=== PATIENT | female | born 1950 | race Caucasian/White ===

== ENCOUNTER → 2023-09-24 | Outpatient (CLI) | payer MEDICARE ==
[2023-09-24 08:55] LABS: Basophils # (A) 0.2 k/uL (0-0.2); Basophils % (A) 2 %; Eosinophils # (A) 0.3 k/uL (0-0.7); Eosinophils % (A) 2 %; HCT 46.3 % (34.0-46.0); HGB 14.4 gm/dL (11.4-16.0); Hypochromasia Slight; Lymphocytes # (A) 2.2 k/uL (1.0-4.8); Lymphocytes % (A) 17 %; MCH 28.9 pg (25.0-35.0); MCHC 31.1 g/dL (31.0-37.0); MCV 92.8 fL (80.0-100.0); Mean Platelet Volume 8.8; Monocytes # (A) 0.8 k/uL (0-1.0); Monocytes % (A) 6 %; Neutrophils # (A) 9.1 k/uL (1.3-7.7); Neutrophils % (A) 71 %; Platelet Count 246 k/uL (150-450); RDW 15.1 % (11.5-15.5); WBC 12.8 k/uL (3.8-10.6)
[2023-09-24 09:03] LABS: ALT 19 U/L (4-34); African American GFR (CKD) 86 (>60 ml/min/1.73 sqM); Anion Gap 11 mmol/L; Blood Urea Nitrogen 19 mg/dL (7-17); Calcium 9.7 mg/dL (8.4-10.2); Carbon Dioxide 22 mmol/L (22-30); Chloride 105 mmol/L (98-107); Glucose 97 mg/dL (74-99); Non-African American GFR(CKD) 75 (>60 ml/min/1.73 sqM); Sodium 138 mmol/L (137-145); Total Bilirubin 1.1 mg/dL (0.2-1.3); Total Protein 8.3 g/dL (6.3-8.2)
[2023-09-24 09:07] LABS: AST 35 U/L (14-36); Alkaline Phosphatase 95 U/L (38-126); Potassium 4.7 mmol/L (3.5-5.1)
[2023-09-24 09:19] LABS: T4, Free (Free Thyroxine) 1.04 ng/dL (0.78-2.19)
[2023-09-24 15:36] LABS: % Iron Saturation 9.37 (12.00-45.00); Iron 37 UG/DL (50-170); LDL Cholesterol,Calculated 119.2 mg/dL (0.0-131.0); Total Iron Binding Capacity 395 UG/DL (228-460)
--- NOTE | 2023-09-27 16:31 | BD ---
EXAMINATION TYPE: Axial Bone Density DATE OF EXAM: 09/24/2023 CLINICAL HISTORY: 73 years old Female. ICD-10 CODE: M816 LOCALIZED OSTEOPOROSIS Height: 63.2in Weight: 105lb FRAX RISK QUESTIONS: Secondary Osteoporosis: RISK FACTORS HISTORY OF: MEDICATIONS: EXAM MEASUREMENTS: Bone mineral densitometry was performed using the [employer]. Bone mineral density as measured about the Lumbar spine is: ----- L1-L4(G/cm2): 0.752 T Score Values are as follows: ----- L1: -3.2 ----- L2: -3.7 ----- L3: -3.7 ----- L4: -3.8 ----- L1-L4: -3.6 Z Score Values are as follows: ----- L1: -0.9 ----- L2: -1.4 ----- L3: -1.4 ----- L4: -1.5 ----- L1-L4: -1.3 First dexa at [facility] Bone mineral density about the R hip (g/cm2): 0.605 Bone mineral density about the L hip (g/cm2): 0.580 T Score values are as follows: -----R Neck: -2.8 -----L Neck: -3.0 -----R Total: -3.2 -----L Total: -3.4 Z Score values are as follows: -----R Neck: -0.6 -----L Neck: -0.8 -----R Total: -1.2 -----L Total: -1.4 First dexa at [facility] FRAX%s: The graph provided illustrates a 16.2% chance for a major osteoporotic fx and a 6% chance for the hips probability for fx in 10 years time. IMPRESSION: Osteopenia (T Score between -2.5 and -1). There is slightly increased risk of fracture and the patient may be considered for treatment. Re-Screen 2-5 years. NOTE: T-SCORE=SD OF THE YOUNG ADULT MEAN.
== END | disposition home or self-care (01) ==
LOC: RADBDWWP 07:46
PROVIDERS: ATTEND Family Medicine
DX: M81.6 Localized osteoporosis [Lequesne] (principal); N17.9 Acute kidney failure, unspecified; R73.9 Hyperglycemia, unspecified; N18.32 Chronic kidney disease, stage 3b; E78.9 Disorder of lipoprotein metabolism, unspecified; M81.0 Age-related osteoporosis without current pathological fracture
CPT/HCPCS: 77080; 80053; 80061; 83036; 83540; 83550; 84439; 84443; 85025

== ENCOUNTER 2023-12-09 15:28 | Observation (INO) | payer MEDICARE ==
[2023-12-09 16:12] LABS: Basophils % (A) 0 %; Eosinophils # (A) 0.1 k/uL (0-0.7); Eosinophils % (A) 1 %; HCT 42.8 % (34.0-46.0); HGB 13.6 gm/dL (11.4-16.0); Lymphocytes # (A) 2.2 k/uL (1.0-4.8); Lymphocytes % (A) 19 %; MCH 28.7 pg (25.0-35.0); MCHC 31.9 g/dL (31.0-37.0); MCV 89.9 fL (80.0-100.0); Mean Platelet Volume 7.5; Monocytes # (A) 0.7 k/uL (0-1.0); Monocytes % (A) 6 %; Neutrophils # (A) 8.5 k/uL (1.3-7.7); Neutrophils % (A) 72 %; Platelet Count 320 k/uL (150-450); RBC 4.76 m/uL (3.80-5.40); RDW 13.7 % (11.5-15.5); WBC 11.7 k/uL (3.8-10.6)
--- NOTE | 2023-12-09 16:27 | XR ---
EXAMINATION TYPE: XR chest 2V DATE OF EXAM: 12/09/2023 4:15 PM CLINICAL INDICATION: Female, 73 years old with history of dysrhythmia; [facility] COMPARISON: Chest radiographs from 10/29/2009 TECHNIQUE: XR chest 2V Frontal view of the chest. FINDINGS: Lungs/Pleura: There is flattening of the diaphragm with increased lucency of the lungs. No evidence o f pneumothorax, pleural effusion or focal consolidation. Pulmonary vascularity: Unremarkable. Heart/mediastinum: The aortic arch is enlarged. Cardiomediastinal silhouette is unremarkable. Musculoskeletal: No acute osseous pathology. Other findings: None Lines/Tubes: IMPRESSION: 1. No acute cardiopulmonary disease/process. 2. 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 COPD. [facility], , 12/09/2023 4:25 PM
[2023-12-09 16:35] LABS: ALT 18 U/L (4-34); AST 26 U/L (14-36); African American GFR (CKD) >90 (>60 ml/min/1.73 sqM); Albumin 4.5 g/dL (3.5-5.0); Alkaline Phosphatase 94 U/L (38-126); Anion Gap 14 mmol/L; Blood Urea Nitrogen 12 mg/dL (7-17); Calcium 10.1 mg/dL (8.4-10.2); Carbon Dioxide 20 mmol/L (22-30); Chloride 101 mmol/L (98-107); Glucose 119 mg/dL (74-99); Magnesium 1.8 mg/dL (1.6-2.3); Non-African American GFR(CKD) 88 (>60 ml/min/1.73 sqM); Potassium 3.9 mmol/L (3.5-5.1); Sodium 135 mmol/L (137-145); Total Protein 7.7 g/dL (6.3-8.2)
--- NOTE | 2023-12-09 16:36 | ED ---
Arrhythmia/Palpitations HPI - General Chief Complaint: Arrhythmia/Palpitations Stated Complaint: AFIB Time Seen by Provider: 12/09/23 16:33 Source: patient, RN notes reviewed, old records reviewed Mode of arrival: ambulatory Limitations: no limitations - History of Present Illness Initial Comments: This is a 73-year-old female who presents today for evaluation regards to severely elevated heart rate on an outpatient evaluation. Patient's heart rate is mildly improved here in the ER but still feels short of breath with mild chest pain. Patient was seen at primary care's office prior to arrival and sent to the ER for further evaluation and management MD Complaint: rapid heart beat, "heart racing", "skipped beats", palpitations, irregular heart beat -: unknown Arrhythmia History: atrial fibrillation Associated Symptoms: chest pain, shortness of breath Treatments Prior to Arrival: other - Related Data Home Medications Medication Instructions Recorded Confirmed Risedronate Sodium [Actonel] 35 mg PO SA 12/09/23 12/09/23 traMADol HCL 50 mg PO BID 12/09/23 12/09/23 Previous Rx's Medication Instructions Recorded Aspirin 81 mg PO DAILY tab 12/11/23 Atorvastatin [Lipitor] 40 mg PO HS #30 tab 12/11/23 Metoprolol Tartrate [Lopressor] 25 mg PO BID #60 tab 12/11/23 Allergies Allergy/AdvReac Type Severity Reaction Status Date / Time codeine AdvReac Heart Rate Verified 12/09/23 16:44 increases Review of Systems ROS Statement: Those systems with pertinent positive or pertinent negative responses have been documented in the HPI. ROS Other: All systems not noted in ROS Statement are negative. Past Medical History Additional Past Medical History / Comment(s): Back History of Any Multi-Drug Resistant Organisms: None Reported Past Surgical History: No Surgical Hx Reported Past Psychological History: No Psychological Hx Reported Smoking Status: Never smoker Past Alcohol Use History: None Reported Past Drug Use History: None Reported General Exam Limitations: no limitations General appearance: alert, anxious, in distress Head exam: Present: atraumatic, normocephalic, normal inspection Eye exam: Present: normal appearance, PERRL, EOMI. Absent: scleral icterus, conjunctival injection, periorbital swelling ENT exam: Present: normal exam, mucous membranes moist Neck exam: Present: normal inspection. Absent: tenderness, meningismus, lymphadenopathy Respiratory exam: Present: normal lung sounds bilaterally. Absent: respiratory distress, wheezes, rales, rhonchi, stridor Cardiovascular Exam: Present: tachycardia, irregular rhythm, normal heart sounds. Absent: systolic murmur, diastolic murmur, rubs, gallop, clicks GI/Abdominal exam: Present: soft, normal bowel sounds. Absent: distended, tenderness, guarding, rebound, rigid Extremities exam: Present: normal inspection, full ROM, normal capillary refill. Absent: tenderness, pedal edema, joint swelling, calf tenderness Back exam: Present: normal inspection Neurological exam: Present: alert, oriented X3, CN II-XII intact Psychiatric exam: Present: normal affect, normal mood Skin exam: Present: warm, dry, intact, normal color. Absent: rash Course Vital Signs 12/09/23 12/09/23 12/09/23 15:38 16:39 16:42 Temperature 98 F Pulse Rate 114 H 109 H Pulse Rate [ 106 H Pulse Oximetery ] Respiratory 20 18 Rate Blood Pressure 124/87 86/35 O2 Sat by Pulse 99 99 Oximetry 12/09/23 12/09/23 12/09/23 19:46 20:00 20:30 Temperature 97.7 F Pulse Rate 106 H 85 84 Pulse Rate [ Pulse Oximetery ] Respiratory 20 Rate Blood Pressure 144/113 170/108 164/103 O2 Sat by Pulse Oximetry 12/09/23 12/09/23 12/10/23 21:00 21:15 00:29 Temperature Pulse Rate 81 91 72 Pulse Rate [ Pulse Oximetery ] Respiratory 17 Rate Blood Pressure 165/99 163/99 122/96 O2 Sat by Pulse 98 Oximetry 12/10/23 12/10/23 12/10/23 04:18 06:07 07:52 Temperature Pulse Rate 72 68 99 Pulse Rate [ Pulse Oximetery ] Respiratory 17 17 18 Rate Blood Pressure 128/85 128/86 118/83 O2 Sat by Pulse 97 99 100 Oximetry 12/10/23 12/10/23 12/10/23 08:02 09:06 11:00 Temperature Pulse Rate 87 82 74 Pulse Rate [ Pulse Oximetery ] Respiratory 18 18 18 Rate Blood Pressure 148/120 140/90 167/106 O2 Sat by Pulse 97 99 Oximetry 12/10/23 12/10/23 12/10/23 13:30 14:43 16:40 Temperature 98.3 F Pulse Rate 74 65 60 Pulse Rate [ Pulse Oximetery ] Respiratory 18 18 18 Rate Blood Pressure 136/101 182/106 147/93 O2 Sat by Pulse 99 98 98 Oximetry 12/10/23 12/10/23 18:40 19:40 Temperature Pulse Rate 82 74 Pulse Rate [ Pulse Oximetery ] Respiratory 18 21 Rate Blood Pressure 137/107 140/94 O2 Sat by Pulse 99 97 Oximetry - Reevaluation(s) Reevaluation #1: 12/09/23 18:39 Medical records reviewed Reevaluation #2: 12/09/23 18:39 Patient remains asymptomatic here in this emergency department Reevaluation #3: Patient informed of results and questions answered Reevaluation #4: Was pt. sent in by a medical professional or institution (LYN Rausch, FUNERAL DIRECTOR/EMBALMER/OWNER, urgent care, hospital, or senior care...) When possible be specific @ -no Did you speak to anyone other than the patient for history (EMS, parent, family, police, friend...)? What history was obtained from this source @ -no Did you review nursing and triage notes (agree or disagree)? Why? @ -agree Are old charts reviewed (outside hosp., previous admission, EMS record, old EKG, old radiological studies, urgent care reports/EKG's, senior care records)? Report findings @ -yes Differential Diagnosis (chest pain, altered mental status, abdominal pain women, abdominal pain men, vaginal bleeding, weakness, fever, dyspnea, syncope, headache, dizziness, GI bleed, back pain, seizure, CVA, palpatations, mental health, musculoskeletal)? @ -prior EKG interpreted by me (3pts min.). @ -yes X-rays interpreted by me (1pt min.). @ -no CT interpreted by me (1pt min.). @ -no U/S interpreted by me (1pt. min.). @ -no What testing was considered but not performed or refused? (CT, X-rays, U/S, labs)? Why? @ -none What meds were considered but not given or refused? Why? @ -none Did you discuss the management of the patient with other professionals (professionals i.e. LYN Rausch, FUNERAL DIRECTOR/EMBALMER/OWNER, lab, RT, psych nurse, hospital social worker, research & insights executive, teacher, multisensor intelligence officer, pillowcase maker)? Give summary @ -no Was smoking cessation discussed for >3mins.? @ -no Was critical care preformed (if so, how long)? @ -yes31 Were there social determinants of health that impacted care today? How? (Homelessness, low income, unemployed, alcoholism, drug addiction, transportatio n, low edu. Level, literacy, decrease access to med. care, halfway, rehab)? @ -none Was there de-escalation of care discussed even if they declined (Discuss DNR or withdrawal of care, Hospice)? DNR status @ -no What co-morbidities impacted this encounter? (DM, HTN, Smoking, COPD, CAD, Cancer, CVA, ARF, Chemo, Hep., AIDS, mental health diagnosis, sleep apnea, morbid obesity)? @ -none Was patient admitted / discharged? Hospital course, mention meds given and route, prescriptions, significant lab abnormalities, going to OR and other pertinent info. @ - 85 female for weakness, patient is a poor historian secondary to underlying dementia, patient will be discharged home with no acute findings Admitted Undiagnosed new problem with uncertain prognosis? @ -no Drug Therapy requiring intensive monitoring for toxicity (Heparin, Nitro, Insulin, Cardizem)? @ -no Were any procedures done? @ -no Diagnosis/symptom? @ -Atrial fibrillation with RVR Acute, or Chronic, or Acute on Chronic? @ -Acute Uncomplicated (without systemic symptoms) or Complicated (systemic symptoms)? @ -Complicated Side effects of treatment? @ -no Exacerbation, Progression, or Severe Exacerbation? @ -exacerbation Poses a threat to life or bodily function? How? (Chest pain, USA, OR, pneumonia, PE, COPD, DKA, ARF, appy, cholecystitis, CVA, Diverticulitis, Homicidal, Suicidal, threat to staff... and all critical care pts) @ -yes acute arrhythmia and palpitations Reevaluation #5: Differential Palpitations Ventricular arrhythmias, atrial arrhythmias, myocardial infarction, anemia, thyrotoxicosis, electrolyte imbalance, hypokalemia, pulmonary embolism, pulmonary disease, drugs, alcohol, anxiety, stress.... This is not meant to be an all-inclusive list. - Consultations Consultation #1: Spoke with admitting who agrees to admit this patient EKG Findings - EKG Comments: EKG Findings:: EKG is sinus tachycardia 122 WI 142 QRS 77 QTc 385 - EKG Results: EKG: interpreted by [facility] Medical Decision Making - Lab Data Result diagrams: 12/10/23 07:46 12/10/23 07:46 Lab Results 12/09/23 12/09/23 12/09/23 Range/Units 15:20 15:20 15:20 WBC 11.7 H (3.8-10.6) k/uL RBC 4.76 (3.80-5.40) m/uL Hgb 13.6 (11.4-16.0) gm/dL Hct 42.8 (34.0-46.0) % MCV 89.9 (80.0-100.0) fL MCH 28.7 (25.0-35.0) pg MCHC 31.9 (31.0-37.0) g/dL RDW 13.7 (11.5-15.5) % Plt Count 320 (150-450) k/uL MPV 7.5 Neutrophils % 72 % Lymphocytes % 19 % Monocytes % 6 % Eosinophils % 1 % Basophils % 0 % Neutrophils # 8.5 H (1.3-7.7) k/uL Lymphocytes # 2.2 (1.0-4.8) k/uL Monocytes # 0.7 (0-1.0) k/uL Eosinophils # 0.1 (0-0.7) k/uL Basophils # 0.0 (0-0.2) k/uL PT 11.0 (10.0-12.5) sec INR 1.0 (<1.2) APTT 25.6 (22.0-30.0) sec Sodium 135 L (137-145) mmol/L Potassium 3.9 (3.5-5.1) mmol/L Chloride 101 (98-107) mmol/L Carbon Dioxide 20 L (22-30) mmol/L Anion Gap 14 mmol/L BUN 12 (7-17) mg/dL Creatinine 0.69 (0.52-1.04) mg/dL Est GFR (CKD-EPI)AfAm >90 (>60 ml/min/1.73 sqM) Est GFR (CKD-EPI)NonAf 88 (>60 ml/min/1.73 sqM) Glucose 119 H (74-99) mg/dL Calcium 10.1 (8.4-10.2) mg/dL Magnesium 1.8 (1.6-2.3) mg/dL Total Bilirubin 1.0 (0.2-1.3) mg/dL AST 26 (14-36) U/L ALT 18 (4-34) U/L Alkaline Phosphatase 94 (38-126) U/L Troponin I (0.000-0.034) ng/mL NT-Pro-B Natriuret Pep pg/mL Total Protein 7.7 (6.3-8.2) g/dL Albumin 4.5 (3.5-5.0) g/dL 12/09/23 12/09/23 Range/Units 15:20 15:20 WBC (3.8-10.6) k/uL RBC (3.80-5.40) m/uL Hgb (11.4-16.0) gm/dL Hct (34.0-46.0) % MCV (80.0-100.0) fL MCH (25.0-35.0) pg MCHC (31.0-37.0) g/dL RDW (11.5-15.5) % Plt Count (150-450) k/uL MPV Neutrophils % % Lymphocytes % % Monocytes % % Eosinophils % % Basophils % % Neutrophils # (1.3-7.7) k/uL Lymphocytes # (1.0-4.8) k/uL Monocytes # (0-1.0) k/uL Eosinophils # (0-0.7) k/uL Basophils # (0-0.2) k/uL PT (10.0-12.5) sec INR (<1.2) APTT (22.0-30.0) sec Sodium (137-145) mmol/L Potassium (3.5-5.1) mmol/L Chloride (98-107) mmol/L Carbon Dioxide (22-30) mmol/L Anion Gap mmol/L BUN (7-17) mg/dL Creatinine (0.52-1.04) mg/dL Est GFR (CKD-EPI)AfAm (>60 ml/min/1.73 sqM) Est GFR (CKD-EPI)NonAf (>60 ml/min/1.73 sqM) Glucose (74-99) mg/dL Calcium (8.4-10.2) mg/dL Magnesium (1.6-2.3) mg/dL Total Bilirubin (0.2-1.3) mg/dL AST (14-36) U/L ALT (4-34) U/L Alkaline Phosphatase (38-126) U/L Troponin I <0.012 (0.000-0.034) ng/mL NT-Pro-B Natriuret Pep 896 pg/mL Total Protein (6.3-8.2) g/dL Albumin (3.5-5.0) g/dL Critical Care Time Critical Care Time: Yes Total Critical Care Time: 31 Disposition Clinical Impression: Atrial fibrillation with rapid ventricular response, Tachycardia, Palpitations, Atrial fibrillation Disposition: ADMITTED IP TO THIS [facility] Condition: Serious Is patient prescribed a controlled substance at d/c from ED?: No Time of Disposition: 18:35
[2023-12-09 16:46] LABS: Partial Thromboplastin Time 25.6 sec (22.0-30.0)
[2023-12-09] MEDS ORDERED: MORPHINE SULFATE 4 MG/ML SYRINGE IV PRN (18:47)
[2023-12-09] MEDS ORDERED: NALOXONE 0.4 MG/ML 1 ML VIAL IV PRN (18:47)
[2023-12-09] MEDS ORDERED: ONDANSETRON 4 MG/2 ML VIAL IVP PRN (18:47)
[2023-12-09] MEDS: HEPARIN SODIUM 1,000 UN/ML (10ML VL) IV ONE (19:09)
[2023-12-09] MEDS: HEPARIN SOD,PORK IN 0.45% NACL 25,000 UNIT in 0.45% NACL 1 250ML.BAG IV SCH (19:10)
[2023-12-09] MEDS: DILTIAZEM DRIP BOLUS FROM BAG 1 MG SOLN IV ONE (19:19)
[2023-12-09] MEDS: DILTIAZEM 125 MG in SODIUM CHLORIDE 0.9% 100 ML IV SCH (19:20)
[2023-12-09] MEDS: SODIUM CHLORIDE 0.9% 1,000 ML IV SCH (20:28)
[2023-12-10] MEDS: HEPARIN SODIUM 1,000 UN/ML (10ML VL) IV PRN (02:53)
--- NOTE | 2023-12-10 05:31 | P.HPIM ---
History of Present Illness H&P Date: 12/09/23 HISTORY OF PRESENT ILLNESS: 73-year-old with active medical history of chronic pain syndrome, chronic back pain scheduled in December. With Dr. Gilmore for kyphoplasty of the L2 with biopsy within the office today for preop clearance found to have irregular heart rate with pulse running 160 bpm with EKG showed A-fib with very rapid ventricular response. Patient is not having any chest pain but having slight lightheadedness and palpitation according to her had this on and off in the past occasionally developed worsening shortness of breath. Patient is new to our office and no indication of any hyperthyroidism or any electrolyte imbalance. She is a former smoker who is not smoking actively. Rest of her vitals including blood pressure is 110/64 normal temperature with no sign of any active acute infection. Decided to send patient to the emergency room to be admitted for A-fib with RVR started on anticoagulation along with Cardizem drip and to be seen cardiology. REVIEW OF SYSTEMS: CONSTITUTIONAL: Well-developed no acute respiratory distress. EYES: No icterus sclerae, no conjunctivitis. EARS, NOSE, MOUTH, THROAT, and FACE: No sore throat, lymphadenopathy, carotid bruits or deformity. RESPIRATORY: Mild shortness of breath no cough or wheezes. CARDIOVASCULAR: Positive slight discomfort with mild palpitation no PND orthopnea no angina. GASTROINTESTINAL: No Abd pain, Nausea or vomiting, no Diarrhea or constipation, No GI Bleed, no distention or masses. GENITOURINARY: Negative for Hematuria or UTI, no kidney stones. INTEGUMENT/BREAST: Negative for any muscular injury with mild osteoarthritis.. HEMATOLOGIC/LYMPHATIC: Negative for bleed or purpura. MUSCULOSKELTAL: Significant lower back pain. NEURLOGICAL: No LOC, Sz or syncope, blurred vision dizziness or abnormality.. BEHAVIORAL/PSYCH: Negative. ENDOCRINE: Negative. PHYSICAL EXAMINATION: General Appearance: Alert, cooperative, no distress, appears stated age. Neck HEENT: Supple, no lymphadenopathy, no thyroid enlargement, no carotid bruits. Lungs: Clear to auscultation without crackles or wheezes no rhonchi, no deformity. Chest Wall: Chest wall normal expansion with deep inspiration no tenderness and no deformity was found on exam, no costochondral pain or discomfort. Heart: Irregular rate and rhythm, S1, S2 positive S3 positive tachycardia with pulse of 160 bpm. Back: Symmetric, no curvature, ROM normal, no CVA tenderness. Abdomen: Soft, non-tender, bowel sounds active all four quadrants, no masses, no organomegaly. Extremities: Extremities normal, atraumatic, no cyanosis or edema. Pulses: 2+ and symmetric. Skin: Skin color, texture, tugor normal, no rashes or lesions. Neurologic: Alert oriented x3 cranial nerves II through XII intact, no motor deficit, no abnormal balance or gait. ASSESSMENT AND PLAN: _A-fib with RVR: New onset, patient be admitted to the hospital started on heparin drip and Cardizem titrate dose to keep pulse below 100 beats per minutes. Will consult cardiology also followed Including echocardiogram, Holter monitor, full panel blood work to be done _Slight dyspnea and shortness of breath: Most likely associated with A-fib troponin will be done to exclude possibility of acute myocardial infarction. _Severe lower back pain with lumbar spine compression she will be going for kyphoplasty and biopsy in July 14, 2023 will depend surgery does not have to be canceled if patient cardiac testing are negative. _History of uterine cancer post hysterectomy and left-sided oophorectomy has been in remission currently. _Osteoporosis: Has been on Actonel 35 mg weekly along with calcium and vitamin D. _Hyperglycemia: With no official diagnosis of type 2 diabetes, Accu-Chek to be done watch for any increase in blood sugars are medication or management. _Chronic pain syndrome: The patient is using tramadol 50 mg every 6 hours as needed will continue medication along with muscle relaxer. _Insomnia: Has been on trazodone will resume medication. _DVT prophylaxis: Patient be on heparin drip. _GI prophylaxis: Patient be on Pepcid 20 mg daily. CODE STATUS: Full code. Admit patient to the hospital to the inpatient service for 1-2 night stay. Past Medical History Additional Past Medical History / Comment(s): Back History of Any Multi-Drug Resistant Organisms: None Reported Past Surgical History: No Surgical Hx Reported Past Psychological History: No Psychological Hx Reported Smoking Status: Never smoker Past Alcohol Use History: None Reported Past Drug Use History: None Reported Medications and Allergies Home Medications Medication Instructions Recorded Confirmed Type Risedronate Sodium [Actonel] 35 mg PO SA 12/09/23 12/09/23 History traMADol HCL 50 mg PO BID 12/09/23 12/09/23 History Allergies Allergy/AdvReac Type Severity Reaction Status Date / Time codeine AdvReac Heart Rate Verified 12/09/23 16:44 increases Physical Exam Vitals: Vital Signs Temp Pulse Pulse Resp BP Pulse Ox 12/09/23 21:15 91 163/99 12/09/23 21:00 81 165/99 12/09/23 20:30 84 164/103 12/09/23 20:00 85 170/108 12/09/23 19:46 97.7 F 106 H 20 144/113 12/09/23 16:42 106 H 12/09/23 16:39 109 H 18 86/35 99 12/09/23 15:38 98 F 114 H 20 124/87 99 Intake and Output 12/09/23 12/09/23 12/10/23 14:59 22:59 06:59 Other: Weight 42.638 kg Results CBC & Chem 7: 12/09/23 15:20 12/09/23 15:20 Labs: Abnormal Lab Results - Last 24 Hours (Table) 12/09/23 12/09/23 Range/Units 15:20 15:20 WBC 11.7 H (3.8-10.6) k/uL Neutrophils # 8.5 H (1.3-7.7) k/uL Sodium 135 L (137-145) mmol/L Carbon Dioxide 20 L (22-30) mmol/L Glucose 119 H (74-99) mg/dL
[2023-12-10 08:02] LABS: Basophils % (A) 0 %; Eosinophils # (A) 0.1 k/uL (0-0.7); Eosinophils % (A) 2 %; HCT 40.4 % (34.0-46.0); HGB 12.6 gm/dL (11.4-16.0); Hypochromasia Slight; Lymphocytes # (A) 1.7 k/uL (1.0-4.8); Lymphocytes % (A) 22 %; MCH 28.6 pg (25.0-35.0); MCHC 31.1 g/dL (31.0-37.0); MCV 91.9 fL (80.0-100.0); Mean Platelet Volume 7.7; Monocytes # (A) 0.5 k/uL (0-1.0); Monocytes % (A) 6 %; Neutrophils # (A) 5.3 k/uL (1.3-7.7); Neutrophils % (A) 68 %; Platelet Count 249 k/uL (150-450); RBC 4.39 m/uL (3.80-5.40); RDW 13.8 % (11.5-15.5); WBC 7.8 k/uL (3.8-10.6)
[2023-12-10 08:46] LABS: African American GFR (CKD) >90 (>60 ml/min/1.73 sqM); Albumin 3.7 g/dL (3.5-5.0); Anion Gap 7 mmol/L; Blood Urea Nitrogen 10 mg/dL (7-17); Carbon Dioxide 22 mmol/L (22-30); Chloride 106 mmol/L (98-107); Glucose 83 mg/dL (74-99); Non-African American GFR(CKD) >90 (>60 ml/min/1.73 sqM); Sodium 135 mmol/L (137-145); Total Bilirubin 1.1 mg/dL (0.2-1.3); Total Protein 6.7 g/dL (6.3-8.2)
[2023-12-10] MEDS: FAMOTIDINE 20 MG TAB PO SCH (08:56)
[2023-12-10] MEDS: traMADol 50 MG TAB PO SCH (08:56)
[2023-12-10 09:14] LABS: ALT 15 U/L (4-34); AST 27 U/L (14-36); Magnesium 1.8 mg/dL (1.6-2.3); Phosphorus 3.1 mg/dL (2.5-4.5); Potassium 4.2 mmol/L (3.5-5.1)
[2023-12-10 09:15] LABS: Alkaline Phosphatase 78 U/L (38-126)
[2023-12-10] MEDS: ASPIRIN 81 MG PO SCH (12:57)
[2023-12-10] MEDS: METOPROLOL TARTRATE 25 MG TAB PO SCH (12:57)
--- NOTE | 2023-12-10 13:28 | P.CRDCN ---
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 She has a past medical history of a TIA and October 2022, chronic back pain. We have been asked to see the patient for A-fib with RVR. Patient was seen at her PCP office in preparation for preop clearance for kyphoplasty of the L2 and was found to have an irregular heart rate with pulse in the 160 range. There was concern for A-fib with RVR and patient was sent to the emergency center for further evaluation. Patient complains of back pain but no chest pain, shortness of breath, no palpitations. Patient denies cough, no dizziness, no fever. She was a smoker of a half a pack per day and quit 2 months ago. She drinks 1 cup of coffee per day. No alcohol use. Blood pressure 148/120, heart rate 101. Patient has been started on Cardizem drip and heparin drip. EKG: Sinus rhythm with PVCs and PACs. EKG has been obtained from PCP office and reviewed found to have sinus rhythm with PVCs and PACs, no evidence of atrial fibrillation Chest x-ray: No acute process. Large aortic arch correlate for ascending thoracic aortic aneurysm. COPD. Laboratory studies: CBC unremarkable initial WBC 11.7. Sodium 135, creatinine 0.62. Troponin negative x 3 draws. TSH 1.22. proBNP 896. Home cardiac medications: None Review Of Systems: At the time of my exam: CONSTITUTIONAL: Denies fever or chills. HEENT: Denies blurred vision, vision changes, or eye pain. Denies hemoptysis CARDIOVASCULAR: Denies chest pain. Denies orthopnea. Denies PND. Denies palpitations RESPIRATORY: Denies shortness of breath. GASTROINTESTINAL: Denies abdominal pain. Denies nausea or vomiting. HEMATOLOGIC: Denies bleeding disorders. GENITOURINARY: Denies any blood in urine. SKIN: Denies puritis. Denies rash. Physical examination: Gen: This is a 73-year-old female in no acute distress VS: reviewed HEENT: Head is atraumatic, normocephalic. Pupils equal, round. Sclerae is anicteric. NECK: Supple. No JVD. Bilateral carotid bruit LUNGS: Clear to auscultation. No wheezes or rhonchi. No intercostal retractions. HEART: Regular rate and rhythm. 3/6 systolic murmur. ABDOMEN: Soft No tenderness. EXTREMITIES: No pedal edema. No calf tenderness. NEUROLOGICAL: Patient is awake, alert and oriented x3. Assessment: Atrial fibrillation currently ruled out Chronic back pain Bilateral carotid bruit History of TIA History of tobacco use, quit 2 months ago Plan: Discontinue heparin drip Discontinue Cardizem drip Start patient on metoprolol tartrate 25 mg twice daily, aspirin 81 mg daily, Lipitor 40 mg daily Obtain lipid profile Continue telemetry monitoring Obtain carotid duplex Obtain 2-D echocardiogram and Doppler study to assess cardiac structure and function Further recommendations to follow based upon clinical course Thank you kindly for this consultation. Nurse practitioner note has been reviewed, I agree with documented findings and plan of care. Patient was seen and examined. Past Medical History Additional Past Medical History / Comment(s): Back History of Any Multi-Drug Resistant Organisms: None Reported Past Surgical History: No Surgical Hx Reported Past Psychological History: No Psychological Hx Reported Smoking Status: Never smoker Past Alcohol Use History: None Reported Past Drug Use History: None Reported Medications and Allergies Home Medications Medication Instructions Recorded Confirmed Type Risedronate Sodium [Actonel] 35 mg PO SA 12/09/23 12/09/23 History traMADol HCL 50 mg PO BID 12/09/23 12/09/23 History Allergies Allergy/AdvReac Type Severity Reaction Status Date / Time codeine AdvReac Heart Rate Verified 12/09/23 16:44 increases Physical Exam Vitals: Vital Signs Temp Pulse Pulse Resp BP Pulse Ox 12/10/23 09:06 82 18 140/90 12/10/23 08:02 87 18 148/120 97 12/10/23 07:52 99 18 118/83 100 12/10/23 06:07 68 17 128/86 99 12/10/23 04:18 72 17 128/85 97 12/10/23 00:29 72 17 122/96 98 12/09/23 21:15 91 163/99 12/09/23 21:00 81 165/99 12/09/23 20:30 84 164/103 12/09/23 20:00 85 170/108 12/09/23 19:46 97.7 F 106 H 20 144/113 12/09/23 16:42 106 H 12/09/23 16:39 109 H 18 86/35 99 12/09/23 15:38 98 F 114 H 20 124/87 99 Intake and Output 12/09/23 12/10/23 12/10/23 22:59 06:59 14:59 Intake Total 39.06 Balance 39.06 Intake: Intake, IV Titration 39.06 Amount Heparin Sod,Pork in 0.45% 39.06 NaCl 25,000 unit In 0.45 % NaCl 1 250ml.bag @ 12 UNITS/KG/HR 5.117 mls/hr IV .Q[facility]H [facility] Rx#: [id number] Other: Weight 42.638 kg Results 12/10/23 07:46 12/10/23 07:46 Cardiac Enzymes 12/09/23 12/09/23 12/09/23 Range/Units 15:20 15:20 21:13 AST 26 (14-36) U/L Troponin I <0.012 0.023 (0.000-0.034) ng/mL 12/10/23 12/10/23 Range/Units 00:54 07:46 AST 27 (14-36) U/L Troponin I 0.032 (0.000-0.034) ng/mL Coagulation 12/09/23 12/10/23 12/10/23 Range/Units 15:20 00:54 07:46 PT 11.0 (10.0-12.5) sec APTT 25.6 30.9 H 37.0 H (22.0-30.0) sec 12/10/23 Range/Units 09:35 PT (10.0-12.5) sec APTT 35.5 H (22.0-30.0) sec CBC 12/09/23 12/10/23 Range/Units 15:20 07:46 WBC 11.7 H 7.8 (3.8-10.6) k/uL RBC 4.76 4.39 (3.80-5.40) m/uL Hgb 13.6 12.6 (11.4-16.0) gm/dL Hct 42.8 40.4 (34.0-46.0) % Plt Count 320 249 (150-450) k/uL Comprehensive Metabolic Panel 12/09/23 12/10/23 Range/Units 15:20 07:46 Sodium 135 L 135 L (137-145) mmol/L Potassium 3.9 4.2 (3.5-5.1) mmol/L Chloride 101 106 (98-107) mmol/L Carbon Dioxide 20 L 22 (22-30) mmol/L BUN 12 10 (7-17) mg/dL Creatinine 0.69 0.62 (0.52-1.04) mg/dL Glucose 119 H 83 (74-99) mg/dL Calcium 10.1 9.0 (8.4-10.2) mg/dL AST 26 27 (14-36) U/L ALT 18 15 (4-34) U/L Alkaline Phosphatase 94 78 (38-126) U/L Total Protein 7.7 6.7 (6.3-8.2) g/dL Albumin 4.5 3.7 (3.5-5.0) g/dL Current Medications Generic Name Dose Route Start Last Admin Trade Name Freq PRN Reason Stop Dose Admin Aspirin 81 mg 12/10/23 12:45 12/10/23 12:57 Aspirin 81 Mg PO Not Given DAILY CONCHITA Atorvastatin Calcium 40 mg 12/10/23 21:00 Atorvastatin 40 Mg Tab PO HS CONCHITA Famotidine 20 mg 12/10/23 09:00 12/10/23 08:56 Famotidine 20 Mg Tab PO 20 mg DAILY CONCHITA Administration Sodium Chloride 1,000 mls @ 75 mls/hr 12/09/23 19:00 12/10/23 08:56 Saline 0.9% IV 75 mls/hr .[id number] CONCHITA Administration Metoprolol Tartrate 25 mg 12/10/23 12:45 12/10/23 12:57 Metoprolol Tartrate 25 Mg Tab PO 25 mg BID CONCHITA Administration Morphine Sulfate 4 mg 12/09/23 18:47 Morphine Sulfate 4 Mg/Ml Syringe IV Q4HR PRN Severe Pain (Scale 7 to 10) Naloxone HCl 0.2 mg 12/09/23 18:47 Naloxone 0.4 Mg/Ml 1 Ml Vial IV Q2M PRN Opioid Reversal Ondansetron HCl 4 mg 12/09/23 18:47 Ondansetron 4 Mg/2 Ml Vial IVP Q8HR PRN Nausea And Vomiting Tramadol HCl 50 mg 12/10/23 09:00 09/26/24 08:56 Tramadol 50 Mg Tab PO 50 mg BID CONCHITA Administration Intake and Output 12/09/23 12/10/23 12/10/23 22:59 06:59 14:59 Intake Total 39.06 Balance 39.06 Intake: Intake, IV Titration 39.06 Amount Heparin Sod,Pork in 0.45% 39.06 NaCl 25,000 unit In 0.45 % NaCl 1 250ml.bag @ 12 UNITS/KG/HR 5.117 mls/hr IV .Q24H [facility] Rx#: [id number] Other: Weight 42.638 kg 12/10/23 07:46 12/10/23 07:46
--- NOTE | 2023-12-10 15:44 | US ---
EXAMINATION TYPE: US carotid duplex BILAT DATE OF EXAM: 12/10/2023 COMPARISON: NONE CLINICAL INDICATION: Female, 73 years old with history of Bruit bilat; h/o TIA in 2022 TECHNIQUE: Carotid duplex ultrasound examination. Indirect Doppler criteria was utilized. FINDINGS: EXAM MEASUREMENTS: RIGHT: Peak Systolic Velocity (PSV) cm/sec ----- Right CCA: 50.5 ----- Right ICA: 57.5 ----- Right ECA: 165.2 ICA/CCA ratio: 1.1 RIGHT: End Diastole cm/sec ----- Right CCA: 19.1 ----- Right ICA: 21.7 ----- Right ECA: 24. 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 1. Normal (no stenosis)=ICA PSV < 125 cm/s: ratio < 2.0: ICA EDV<40 cm/s. 2. Less than 50% stenosis=ICA PSV < 125 cm/s: ratio < 2.0: ICA EDV<40 cm/s. 3. 50 to 69% stenosis=ICA PSV of 125 to 230 cm/s: ration 2.0 ? 4.0: ICA EDV 40-100 cm/s. 4. Greater than 70% stenosis to near occlusion= ICA PSV > 230 cm/s: ratio > 4.0: ICA EDV > 100 cm/s. 5. Near occlusion= ICA PSV velocities may be low or undetectable: variable ratio and ICA EDV. 6. Total occlusion=unable to detect flow. [facility], , 12/10/2023 3:42 PM
[2023-12-10] MEDS: ATORVASTATIN 40 MG TAB PO SCH (20:36)
--- NOTE | 2023-12-11 07:29 | P.PN ---
Subjective Progress Note Date: 12/10/23 HISTORY OF PRESENT ILLNESS: 73-year-old with active medical history of chronic pain syndrome, chronic back pain scheduled in December. With Dr. Gilmore for kyphoplasty of the L2 with biopsy within the office today for preop clearance found to have irregular heart rate with pulse running 160 bpm with EKG showed A-fib with very rapid ventricular response. Patient is not having any chest pain but having slight lightheadedness and palpitation according to her had this on and off in the past occasionally developed worsening shortness of breath. Patient is new to our office and no indication of any hyperthyroidism or any electrolyte imbalance. She is a former smoker who is not smoking actively. Rest of her vitals including blood pressure is 110/64 normal temperature with no sign of any active acute infection. Decided to send patient to the emergency room to be admitted f or A-fib with RVR started on anticoagulation along with Cardizem drip and to be seen cardiology. 12/10/2023: The patient is doing much better pulse rate on Cardizem drip is down in the 90-1 10 back in sinus rhythm with no A-fib will be seen cardiology today Cardizem will be discontinued and start metoprolol to tartrate 25 mg twice a day will titrate dose higher if needed continue to watch patient on telemetry apparently cardiology reviewed the rhythm strip and the EKG originally and they do not believe this is A-fib but mostly PVCs and PACs with rapid pulse and recommending to keep patient on higher dose of beta-marva metoprolol will be titrated if needed no anticoagulation recommended at this point. On encounter of? Of carotid bruits patient is having carotid ultrasound and still waiting for her echocardiogram. Fortunately all testing including troponin and electrolytes along with thyroid has been negative and normal. Prepare hopefully for discharge in the next 24 hours after complete testing in the next week to watch patient pulse rate remained below 100 on beta-marva. REVIEW OF SYSTEMS: CONSTITUTIONAL: Well-developed no acute respiratory distress. EYES: No icterus sclerae, no conjunctivitis. EARS, NOSE, MOUTH, THROAT, and FACE: No sore throat, lymphadenopathy, carotid bruits or deformity. RESPIRATORY: Mild shortness of breath no cough or wheezes. CARDIOVASCULAR: Positive slight discomfort with mild palpitation no PND o rthopnea no angina. GASTROINTESTINAL: No Abd pain, Nausea or vomiting, no Diarrhea or constipation, No GI Bleed, no distention or masses. GENITOURINARY: Negative for Hematuria or UTI, no kidney stones. INTEGUMENT/BREAST: Negative for any muscular injury with mild osteoarthritis.. HEMATOLOGIC/LYMPHATIC: Negative for bleed or purpura. MUSCULOSKELTAL: Significant lower back pain. NEURLOGICAL: No LOC, Sz or syncope, blurred vision dizziness or abnormality.. BEHAVIORAL/PSYCH: Negative. ENDOCRINE: Negative. PHYSICAL EXAMINATION: General Appearance: Alert, cooperative, no distress, appears stated age. Neck HEENT: Supple, no lymphadenopathy, no thyroid enlargement, no carotid bruits. Lungs: Clear to auscultation without crackles or wheezes no rhonchi, no deformity. Chest Wall: Chest wall normal expansion with deep inspiration no tenderness and no deformity was found on exam, no costochondral pain or discomfort. Heart: Irregular rate and rhythm, S1, S2 positive S3 positive tachycardia with pulse of 160 bpm. Back: Symmetric, no curvature, ROM normal, no CVA tenderness. Abdomen: Soft, non-tender, bowel sounds active all four quadrants, no masses, no organomegaly. Extremities: Extremities normal, atraumatic, no cyanosis or edema. Pulses: 2+ and symmetric. Skin: Skin color, texture, tugor normal, no rashes or lesions. Neurologic: Alert oriented x3 cranial nerves II through XII intact, no motor deficit, no abnormal balance or gait. ASSESSMENT AND PLAN: _A-fib with RVR was ruled out: The patient had very rapid PVCs and PACs at 160 bpm brought down by Cardizem and will be continue on metoprolol without Cardizem start today no anticoagulation needed at this point. _Slight dyspnea and shortness of breath: Most likely secondary to rapid pulse no sign of myocardial infarction no sign of any cardiac muscle weakness or abnormality. _Severe lower back pain with lumbar spine compression she will be going for kyphoplasty and biopsy in July 14, 2023 will depend surgery does not have to be canceled if patient cardiac testing are negative. _History of TIA: No residual in the evening with this episode might be in A-fib with pulse being rapid is a problem at this point patient eventually will require probably longer-term heart monitor such as 2 weeks or event monitor to be watched closely because even her TIA originally could have been caused by A- fib with rapid ventricular sponsor. Try to exclude any structural abnormality o f the heart muscle including patent cade ovale or any valvular abnormality would be highly recommended. _History of uterine cancer post hysterectomy and left-sided oophorectomy has been in remission currently. _Osteoporosis: Has been on Actonel 35 mg weekly along with calcium and vitamin D. _Hyperglycemia: With no official diagnosis of type 2 diabetes, Accu-Chek to be done watch for any increase in blood sugars are medication or management. _Chronic pain syndrome: The patient is using tramadol 50 mg every 6 hours as needed will continue medication along with muscle relaxer. _Insomnia: Has been on trazodone will resume medication. Discussion: Continue to watch patient on oral metoprolol today without Cardizem drip off anticoagulation back on baby aspirin awaiting for the final result of her testing including carotid and echo based on her to decide on timeframe for discharge which most likely will happen by tomorrow morning. Objective - Vital Signs Vital signs: Vital Signs Temp 97.7 F 12/09/23 19:46 Pulse 72 12/10/23 04:18 Resp 17 12/10/23 04:18 BP 128/85 12/10/23 04:18 Pulse Ox 97 12/10/23 04:18 FiO2 Intake & Output 12/09/23 12/09/23 12/10/23 06:59 18:59 06:59 Intake Total 39.06 Balance 39.06 Weight 42.638 kg Intake: Intake, IV Titration 39.06 Amount Heparin Sod,Pork in 0.45% 39.06 NaCl 25,000 unit In 0.45 % NaCl 1 250ml.bag @ 12 UNITS/KG/HR 5.117 mls/hr IV .Q24H [facility] Rx#: [id number] - Labs CBC & Chem 7: 12/10/23 07:46 12/10/23 07:46 Labs: Abnormal Lab Results - Last 24 Hours (Table) 12/09/23 12/09/23 12/10/23 Range/Units 15:20 15:20 00:54 WBC 11.7 H (3.8-10.6) k/uL Neutrophils # 8.5 H (1.3-7.7) k/uL APTT 30.9 H (22.0-30.0) sec Sodium 135 L (137-145) mmol/L Carbon Dioxide 20 L (22-30) mmol/L Glucose 119 H (74-99) mg/dL
--- NOTE | 2023-12-11 11:33 | P.PN ---
Subjective Progress Note Date: 12/11/23 HISTORY OF PRESENT ILLNESS: 73-year-old with active medical history of chronic pain syndrome, chronic back pain scheduled in December. With Dr. Gilmore for kyphoplasty of the L2 with biopsy within the office today for preop clearance found to have irregular heart rate with pulse running 160 bpm with EKG showed A-fib with very rapid ventricular response. Patient is not having any chest pain but having slight lightheadedness and palpitation according to her had this on and off in the past occasionally developed worsening shortness of breath. Patient is new to our office and no indication of any hyperthyroidism or any electrolyte imbalance. She is a former smoker who is not smoking actively. Rest of her vitals including blood pressure is 110/64 normal temperature with no sign of any active acute infection. Decided to send patient to the emergency room to be admitted f or A-fib with RVR started on anticoagulation along with Cardizem drip and to be seen cardiology. 12/10/2023: The patient is doing much better pulse rate on Cardizem drip is down in the 90-1 10 back in sinus rhythm with no A-fib will be seen cardiology today Cardizem will be discontinued and start metoprolol to tartrate 25 mg twice a day will titrate dose higher if needed continue to watch patient on telemetry apparently cardiology reviewed the rhythm strip and the EKG originally and they do not believe this is A-fib but mostly PVCs and PACs with rapid pulse and recommending to keep patient on higher dose of beta-marva metoprolol will be titrated if needed no anticoagulation recommended at this point. On encounter of? Of carotid bruits patient is having carotid ultrasound and still waiting for her echocardiogram. Fortunately all testing including troponin and electrolytes along with thyroid has been negative and normal. Prepare hopefully for discharge in the next 24 hours after complete testing in the next week to watch patient pulse rate remained below 100 on beta-marva. 12/11/2023: Patient is doing very well, her echocardiogram was done this morning results still pending at this point. Carotid ultrasound was reviewed from yesterday showed mild stenosis with 50-60 percentile only patient does not require any intervention or tension fluid for now. Her pulse remained in sinus rhythm with pulse rate running in the 60s to 70 currently on metoprolol not on Cardizem anymore. Spoke with the cardiology service plan was to finalize the echo there is no problem with it patient be able to be discharged home on metoprolol and baby aspirin she is to follow with cardiology in the next few days for 2 weeks heart monitor to make sure is not having any A-fib in between. Also spoke with patient and her daughter today and at length and the plan to delay her procedure for kyphoplasty and back surgery at least 1 month. Hopefully patient be discharged home in the afternoon today. REVIEW OF SYSTEMS: CONSTITUTIONAL: Well-developed no acute respiratory distress. EYES: No icterus sclerae, no conjunctivitis. EARS, NOSE, MOUTH, THROAT, and FACE: No sore throat, lymphadenopathy, carotid bruits or deformity. RESPIRATORY: Mild shortness of breath no cough or wheezes. CARDIOVASCULAR: Positive slight discomfort with mild palpitation no PND orthopnea no angina. GASTROINTESTINAL: No Abd pain, Nausea or vomiting, no Diarrhea or constipation, No GI Bleed, no distention or masses. GENITOURINARY: Negative for Hematuria or UTI, no kidney stones. INTEGUMENT/BREAST: Negative for any muscular injury with mild osteoarthritis.. HEMATOLOGIC/LYMPHATIC: Negative for bleed or purpura. MUSCULOSKELTAL: Significant lower back pain. NEURLOGICAL: No LOC, Sz or syncope, blurred vision dizziness or abnormality.. BEHAVIORAL/PSYCH: Negative. ENDOCRINE: Negative. PHYSICAL EXAMINATION: General Appearance: Alert, cooperative, no distress, appears stated age. Neck HEENT: Supple, no lymphadenopathy, no thyroid enlargement, no carotid bruits. Lungs: Clear to auscultation without crackles or wheezes no rhonchi, no deformit y. Chest Wall: Chest wall normal expansion with deep inspiration no tenderness and no deformity was found on exam, no costochondral pain or discomfort. Heart: Irregular rate and rhythm, S1, S2 positive S3 positive tachycardia with pulse of 160 bpm. Back: Symmetric, no curvature, ROM normal, no CVA tenderness. Abdomen: Soft, non-tender, bowel sounds active all four quadrants, no masses, no organomegaly. Extremities: Extremities normal, atraumatic, no cyanosis or edema. Pulses: 2+ and symmetric. Skin: Skin color, texture, tugor normal, no rashes or lesions. Neurologic: Alert oriented x3 cranial nerves II through XII intact, no motor deficit, no abnormal balance or gait. ASSESSMENT AND PLAN: _A-fib with RVR was ruled out: The patient had very rapid PVCs and PACs at 160 bpm brought down by Cardizem and will be continue on metoprolol without Cardizem start today no anticoagulation needed at this point. _Slight dyspnea and shortness of breath: Most likely secondary to rapid pulse no sign of myocardial infarction no sign of any cardiac muscle weakness or abnorma lity. _Severe lower back pain with lumbar spine compression she will be going for kyphoplasty and biopsy in July 14, 2023 will depend surgery does not have to be canceled if patient cardiac testing are negative. _History of TIA: No residual in the evening with this episode might be in A-fib with pulse being rapid is a problem at this point patient eventually will require probably longer-term heart monitor such as 2 weeks or event monitor to be watched closely because even her TIA originally could have been caused by A- fib with rapid ventricular sponsor. Try to exclude any structural abnormality of the heart muscle including patent cade ovale or any valvular abnormality would be highly recommended. _History of uterine cancer post hysterectomy and left-sided oophorectomy has been in remission currently. _Osteoporosis: Has been on Actonel 35 mg weekly along with calcium and vitamin D. _Hyperglycemia: With no official diagnosis of type 2 diabetes, Accu-Chek to be done watch for any increase in blood sugars are medication or management. _Chronic pain syndrome: The patient is using tramadol 50 mg every 6 hours as needed will continue medication along with muscle relaxer. _Insomnia: Has been on trazodone will resume medication. Discussion: Patient is doing very well no A-fib or a flutter pulse running in the 60s to 70s on metoprolol, she is not on any anticoagulation only baby aspirin. Her echocardiogram still pending as soon as read if there is no problem related to cardiomyopathy, wall motion abnormality, thrombus or any other abnormality patient be able to be discharged home today. Objective - Vital Signs Vital signs: Vital Signs Temp 98 F 12/10/23 23:10 Pulse 70 12/10/23 23:10 Resp 16 12/10/23 23:10 BP 129/89 12/10/23 23:10 Pulse Ox 99 12/10/23 23:10 FiO2 Intake & Output 12/10/23 12/11/23 12/11/23 18:59 06:59 18:59 Intake Total 77.285 0 Balance 77.285 0 Weight 43.4 kg Intake: Intake, IV Titration 77.285 Amount Heparin Sod,Pork in 0.45% 77.285 NaCl 25,000 unit In 0.45 % NaCl 1 250ml.bag @ 12 UNITS/KG/HR 5.117 mls/hr IV .Q24H [facility] Rx#: [id number] Oral 0 - Labs CBC & Chem 7: 12/10/23 07:46 12/10/23 07:46 Labs: Abnormal Lab Results - Last 24 Hours (Table) 12/10/23 12/10/23 12/10/23 Range/Units 07:46 07:46 09:35 APTT 37.0 H 35.5 H (22.0-30.0) sec Sodium 135 L (137-145) mmol/L
[2023-12-11 11:37] VITALS: BP 167/81; PULSE 50; RESP 18; TEMP 98.5
--- NOTE | 2023-12-11 12:31 | CA ---
Transthoracic Echo Report Name: Kelsey Baxter Age: 73 Gender: F : 1950 Exam Date: 12/11/2023 08:56 Exam Location: [facility] Ht (in): 64 Wt (lb): 94 Ordering Physician: Salomón Gilmore MD Attending/Referring Phys: Capacitor Inspector Julieta Dillon RDCS Procedure CPT: Indications: LV function r/t a-fib Cardiac Hx: Technical Quality: Fair Contrast 1: Total Dose (mL): Contrast 2: Total Dose (mL): MEASUREMENTS (Male / Female) Normal Values 2D ECHO LV Diastolic Diameter PLAX 4.5 cm 4.2 - 5.9 / 3.9 - 5.3 cm LV Systolic Diameter PLAX 3.9 cm IVS Diastolic Thickness 1.0 cm 0.6 - 1.0 / 0.6 - 0.9 cm LVPW Diastolic Thickness 0.9 cm 0.6 - 1.0 / 0.6 - 0.9 cm LV Relative Wall Thickness 0.4 LVOT Diameter 2.3 cm LV Diastolic Volume MOD BP 79.7 cm??? 67 - 155 / 56 - 104 cm??? LV Systolic Volume MOD BP 42.6 cm??? 22 - 58 / 19 - 49 cm??? LV Ejection Fraction MOD BP 46.5 % >= 55 % LV Cardiac Index MOD BP 2158.1 cm???/min???m??? LV Diastolic Volume MOD 4C 70.0 cm??? LV Systolic Volume MOD 4C 41.0 cm??? LV Ejection Fraction MOD 4C 41.4 % LV Cardiac Index MOD 4C 1690.1 cm???/min???m??? LV Diastolic Length 4C 7.0 cm LV Systolic Length 4C 5.7 cm LV Diastolic Volume MOD 2C 84.5 cm??? LV Systolic Volume MOD 2C 39.7 cm??? LV Ejection Fraction MOD 2C 53.0 % LV Cardiac Index MOD 2C 2610.3 cm???/min???m??? LV Diastolic Length 2C 7.5 cm LV Systolic Length 2C 6.4 cm LA Volume 31.7 cm??? 18 - 58 / 22 - 52 cm??? LA Volume Index 23.1 cm???/m??? 16 - 28 cm???/m??? Ascending Aorta Diameter 4.2 cm DOPPLER AV Peak Velocity 94.3 cm/s AV Peak Gradient 3.6 mmHg AV Mean Velocity 57.4 cm/s AV Mean Gradient 1.5 mmHg AV Velocity Time Integral 17.3 cm LVOT Peak Velocity 65.1 cm/s LVOT Peak Gradient 1.7 mmHg LVOT Velocity Time Integral 12.3 cm LVOT Stroke Volume 51.9 cm??? LVOT Stroke Volume Index 36.5 ml/m??? LVOT Cardiac Index 3020.2 cm???/min???m??? AV Area Cont Eq vti 3.0 cm??? AV Area Cont Eq pk 2.9 cm??? MV Area PHT 4.5 cm??? Mitral E Point Velocity 55.3 cm/s Mitral A Point Velocity 71.6 cm/s Mitral E to A Ratio 0.8 MV Deceleration Time 168.8 ms TR Peak Velocity 250.0 cm/s TR Peak Gradient 25.0 mmHg Right Atrial Pressure 5.0 mmHg Pulmonary Artery Systolic Pressu 30.0 mmHg Right Ventricular Systolic Press 30.0 mmHg PV Peak Velocity 63.9 cm/s PV Peak Gradient 1.6 mmHg FINDINGS Left Ventricle Left ventricular ejection fraction is estimated at 45-50 %. Mildly decreased left ventricular ejection fraction. Left ventricular cavity size normal. Left ventricular wall thickness normal. Right Ventricle Normal right ventricular size and function. Right ventricular systolic pressure within normal limits. Right Atrium Normal right atrial size. Left Atrium Normal left atrial size. Mitral Valve Mitral valve thickened. Mitral annular calcification. No evidence for mitral valve prolapse. No mitral stenosis. Trace mitral regurgitation. Aortic Valve Trileaflet aortic valve. Aortic valve sclerosis. No aortic stenosis. No aortic regurgitation. Tricuspid Valve Structurally normal tricuspid valve. No tricuspid stenosis. Mild tricuspid regurgitation. Pulmonic Valve Structurally normal pulmonic valve. No pulmonic stenosis. Trace pulmonic regurgitation. Pericardium No pericardial effusion. Aorta Aortic annulus normal. Enlarged ascending and abdominal aorta. CONCLUSIONS Diagnosis: New onset atrial fibrillation with RVR Normal LV size with mildly reduced LV systolic function. Ejection fraction at the lower limits of normal of 50% without any clear-cut wall motion abnormalities No significant valvular abnormalities Atherosclerotic abdominal aorta Previewed by: Dr. Stephon Nova MD (Electronically Signed) Final Date: 11 December 2023 12:30
[2023-12-11 13:40] VITALS: BMI 16.4
--- NOTE | 2023-12-11 15:11 | P.PN ---
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 She has a past medical history of a TIA and October 2022, chronic back pain. We have been asked to see the patient for A-fib with RVR. Patient was seen at her PCP office in preparation for preop clearance for kyphoplasty of the L2 and was found to have an irregular heart rate with pulse in the 160 range. There was concern for A-fib with RVR and patient was sent to the emergency center for further evaluation. Patient complains of back pain but no chest pain, shortness of breath, no palpitations. Patient denies cough, no dizziness, no fever. She was a smoker of a half a pack per day and quit 2 months ago. She drinks 1 cup of coffee per day. No alcohol use. Blood pres sure 148/120, heart rate 101. Patient has been started on Cardizem drip and heparin drip. EKG: Sinus rhythm with PVCs and PACs. EKG has been obtained from PCP office and reviewed found to have sinus rhythm with PVCs and PACs, no evidence of atrial fibrillation Chest x-ray: No acute process. Large aortic arch correlate for ascending thoracic aortic aneurysm. COPD. Laboratory studies: CBC unremarkable initial WBC 11.7. Sodium 135, creatinine 0.62. Troponin negative x 3 draws. TSH 1.22. proBNP 896. Home cardiac medications: None 12/11 Blood pressure 128/89, heart rate 72, pulse ox 100% on room air. No repeat blood work today. Patient denies any new complaints. No chest pain, no palp itations, no lightheadedness or dizziness. Echocardiogram reveals normal LV size, EF 50%, no valvular abnormalities, atherosclerotic abdominal aorta. Carotid duplex reveals moderate narrowing between 50 and 69% of the left internal carotid artery. Physical examination: Gen: This is a 73-year-old female in no acute distress VS: reviewed HEENT: Head is atraumatic, normocephalic. Pupils equal, round. Sclerae is anicteric. NECK: Supple. No JVD. Bilateral carotid bruit LUNGS: Clear to auscultation. No wheezes or rhonchi. No intercostal retractions. HEART: Regular rate and rhythm. 3/6 systolic murmur. ABDOMEN: Soft No tenderness. EXTREMITIES: No pedal edema. No calf tenderness. NEUROLOGICAL: Patient is awake, alert and oriented x3. Assessment: Atrial fibrillation currently ruled out Chronic back pain 50 to 69% carotid stenosis on the left History of TIA History of tobacco use, quit 2 months ago Plan: Continue patient on metoprolol tartrate 25 mg twice daily, aspirin 81 mg daily, Lipitor 40 mg daily Patient is cleared for discharge from cardiology and may follow-up with Dr. Seaman in 1 week Nurse practitioner note has been reviewed, I agree with documented findings and plan of care. Patient was seen and examined. Objective - Vital Signs Vital signs: Vital Signs Temp 97.9 F 12/11/23 08:37 Pulse 72 12/11/23 08:37 Resp 16 12/11/23 08:37 BP 128/89 12/11/23 08:37 Pulse Ox 100 12/11/23 08:37 FiO2 Intake & Output 12/10/23 12/11/23 12/11/23 18:59 06:59 18:59 Intake Total 77.285 0 240 Balance 77.285 0 240 Weight 43.4 kg Intake: Intake, IV Titration 77.285 Amount Heparin Sod,Pork in 0.45% 77.285 NaCl 25,000 unit In 0.45 % NaCl 1 250ml.bag @ 12 UNITS/KG/HR 5.117 mls/hr IV .Q[facility]H [facility] Rx#: [id number] Oral 0 240 - Labs CBC & Chem 7: 12/10/23 07:46 12/10/23 07:46 Labs: Abnormal Lab Results - Last 24 Hours (Table) 12/10/23 Range/Units 09:35 APTT 35.5 H (22.0-30.0) sec
[2023-12-11 16:11] LABS: Chol/HDL Ratio 4.44 Ratio; VLDL Calculation 17.06 mg/dL (5.00-40.00)
== END 2023-12-11 13:35 | disposition home or self-care (01) ==
LOC: EC 15:28 → INTOOBSV 18:48 → 3SCARD 18:48
PROVIDERS: ADMIT Internal Medicine Geriatric Medicine; ATTEND Internal Medicine Geriatric Medicine
DX: I48.91 Unspecified atrial fibrillation (principal); J44.9 Chronic obstructive pulmonary disease, unspecified; I49.3 Ventricular premature depolarization; R09.89 Other specified symptoms and signs involving the circulatory and respiratory systems; M81.0 Age-related osteoporosis without current pathological fracture; R73.9 Hyperglycemia, unspecified; G89.4 Chronic pain syndrome; G47.00 Insomnia, unspecified; I65.22 Occlusion and stenosis of left carotid artery; Z85.42 Personal history of malignant neoplasm of other parts of uterus; Z86.73 Personal history of transient ischemic attack (TIA), and cerebral infarction without residual deficits; Z87.891 Personal history of nicotine dependence; Z88.5 Allergy status to narcotic agent; Z79.82 Long term (current) use of aspirin; Z90.710 Acquired absence of both cervix and uterus
CPT/HCPCS: 36415; 71046; 80053; 80061; 83735; 83880; 84100; 84443; 84484; 85025; 85610; 85730; 93005; 93306; 93880; 96365; 96366; 96368; 96375; 96376; 99291